=== PATIENT | male | born 2005 | race Caucasian/White ===

== ENCOUNTER 2023-04-27 16:21 | Observation (INO) | payer BC, MEDICAID, SELFPAY ==
[2023-04-27 16:25] VITALS: BP 153/85; PULSE 83; RESP 16; TEMP 36.5; O2SAT 98; BMI 37.6
--- NOTE | 2023-04-27 16:53 | CTR_ITS ---
PROCEDURE INFORMATION: Exam: CT Abdomen And Pelvis With Contrast Exam date and time: 04/27/2023 5:53 PM Age: 17 years old Clinical indication: Abdominal pain; Localized; Right lower quadrant (rlq); Additional info: Progressive rlq pain TECHNIQUE: Imaging protocol: Computed tomography of the abdomen and pelvis with contrast. Axial, coronal and sagittal reformatted images were created and reviewed. Radiation optimization: All CT scans at this facility use at least one of these dose optimization techniques: automated exposure control; mA and/or kV adjustment per patient size (includes targeted exams where dose is matched to clinical indication); or iterative reconstruction. Contrast material: OMNI 350; Contrast volume: 100 ml; Contrast route: INTRAVENOUS (IV); REPORTING DATA: Count of CT and Cardiac NM exams in prior 12 months: This patient has received 0 known CTs and 0 known cardiac nuclear medicine studies in the 12 months prior to the current study. COMPARISON: No relevant prior studies available. RADIATION DOSE METRICS: Total DLP (mGy-cm): 970 FINDINGS: Diaphragm: Small hiatal hernia. Liver: Unremarkable. Gallbladder and bile ducts: No radiodense gallstones. No biliary ductal dilatation. Pancreas: Unremarkable. Spleen: Unremarkable. Adrenal glands: Normal. No mass. Kidneys and ureters: No mass. No radiodense calculi. No hydronephrosis. Stomach and bowel: No bowel wall thickening. No obstruction. No pneumatosis. Appendix: Mildly dilated, hyperemic and thick-walled distal appendix with associated intraluminal appendicolith and subtle periappendiceal haziness. Intraperitoneal space: No free fluid. No organized fluid collection. No free air. Vasculature: Unremarkable. No aneurysm. Lymph nodes: Small mesenteric lymph nodes, nonspecific in appearance. No pathologically enlarged lymph nodes. Urinary bladder: Unremarkable as visualized. Reproductive: Unremarkable. Bones/joints: No acute osseous abnormality. Soft tissues: Tiny, fat containing umbilical hernia. CT/CT abdomen pelvis w con* [id number] IMPRESSION: 1. Findings concerning for acute distal appendicitis, as described above. 2. Additional findings, as above.
--- NOTE | 2023-04-27 16:54 | ED_ITS ---
HPI - Abdominal Pain General: Chief Complaint: Abdominal Pain Stated Complaint: abd pain Time Seen by Provider: 04/27/23 16:33 Source: patient and family Mode of arrival: ambulatory Limitations: no limitations History of Present Illness: This patient made his way to the emergency department after being referred from a clinic. History of having progressive abdominal pain that began earlier today shortly after arriving to work and has progressed throughout the day. He states that felt fine when he first got up. He states that he went to work and noted some soreness in his abdomen and thought he had to go to the bathroom which she did which did not relieve the pain in fact actually made the pain worse. Subsequently the pain continued to progress and worsen. It is predominantly located in the right side of his abdomen. He states it is made worse by bending over riding in the vehicle or moving about. He has had 2-3 bowel movements which have not changed his symptoms. He is also urinated as well. He denies any fevers or chills or recent illness. Denies any lifting injury. He states the pain does not radiate down to his scrotum or testicles. He has had a prior hernia surgery when he was an infant but otherwise no other surgery or significant past medical history. He is takes no medications. Quality: aching Radiation: RLQ Exacerbating factors: movement Relieving factors: nothing Associated Symptoms: Denies chills, diarrhea, dysuria, fever(s), nausea and vomiting Review of Systems Const: Denies: fever(s) or chills ENMT: Denies: throat pain, odynophagia, nasal discharge or nasal congestion Card: Denies: chest pain Resp: Denies: dyspnea, productive cough or non-productive cough GI: Denies: abdominal pain, nausea, vomiting or diarrhea : Denies: flank pain, difficulty urinating, dysuria or urinary frequency Musc: Denies: neck pain, back pain, extremity pain or extremity swelling Skin/Breast: Denies: rash Neuro: Denies: headache(s) or weakness in extremities Physical Exam Narrative: EXAM NARRATIVE: He is a husky looking teenager who appears to be comfortable and he is cooperative during the interview and answers questions appropriately. Const: COMMON NORMALS: patient oriented x3 and alert GENERAL APPEARANCE: cooperative and comfortable NUTRITIONAL APPEARANCE: overweight ORIENTATION/CONSCIOUSNESS: Yes awake HENMT: COMMON NORMALS: normocephalic, atraumatic, Normal nasal mucous membranes and turbinates present, moist oral mucous membranes and oropharynx normal HEAD & SCALP: normocephalic and atraumatic NOSE: Normal nasal mucous membranes and turbinates present Eye: COMMON NORMALS: Equal, round and reactive pupils present, EOMs intact bilaterally and conjunctivae normal CONJUNCTIVA: Yes conjunctivae normal PUPIL: Yes Equal, round and reactive pupils present Neck/C-Spine: COMMON NORMALS: full ROM and no lymphadenopathy Chest: COMMONS NORMALS: normal inspection of the chest Resp: COMMON NORMALS: normal respiratory effort, No retractions, No use of accessory muscles and clear to auscultation bilaterally AUSCULTATION: clear to auscultation bilaterally Cardio: COMMON NORMALS: regular rate, regular rhythm, No murmurs present (Cardio) and Peripheral pulses 2+ throughout RATE: regular rate RHYTHM: regular rhythm PERIPHERAL PULSES: Peripheral pulses 2+ throughout GI: COMMON NORMALS: Normal to inspection, nondistended, normoactive bowel sounds present and no masses PALPATION: Yes Tenderness to palpation present (GI), Yes Guarding due to palpation present (GI) and Yes Rebound tenderness present OTHER: As noted he has predominant tenderness in the paramedian location of his right side of his abdomen. Reproduction of guarding and symptoms with percussion movement of his abdomen as well as internal rotation of his right hip. GI image (male): 1. Area of maximal tenderness : COMMON NORMALS: Yes no CVA tenderness BLADDER/KIDNEY EXAM: Yes no CVA tenderness Back/Pelvis: COMMON NORMALS: no CVA tenderness, thoracic and lumbar spine normal to inspection, no thoracic nor lumbar tenderness and thoraco-lumbar ROM normal Extremity: COMMON NORMALS: normal to inspection, full ROM, capillary refill normal, no calf tenderness and no pedal edema Neuro: COMMON NORMALS: patient oriented x3, moves all extremities, no focal motor deficits and no sensory deficits noted SENSORIUM/ORIENTATION: Yes alert Psych: COMMON NORMALS: mental status grossly normal Skin: COMMON NORMALS: no rashes or lesions noted and no wounds GENERAL SKIN EXAM: no rashes or lesions noted Course Reevaluation(s): Reevaluation #1: Patient remained stable. Patient was informed of findings and the plan of care. All questions were answered. Time: 18:53 Consultations: Consultation #1: Discussed with Dr. Zhang general surgeon on-call who requested admission to him with initiation of IV be antibiotics and anticipation of an parking lot spotter a ppendectomy Time: 18:54 Vital Signs: Vital signs: Vital Signs Temperature 97.7 F 04/27/23 16:25 Pulse Rate 77 04/27/23 18:43 Respiratory Rate 16 04/27/23 18:43 Blood Pressure 114/62 04/27/23 18:43 Pulse Oximetry 97 04/27/23 18:43 Oxygen Delivery Me thod Room Air 04/27/23 18:43 MDM - Abdominal Pain Medical Decision Making Normally healthy teenager who presents to the emergency department with progressive abdominal pain predominantly located in the right abdomen since approximately 830 or so today. No associated symptoms of fevers chills vomiting diarrhea etc. Symptoms are worse with activity bending over and movement. His clinical examination suggested possible acute abdomen with guarding, psoas, obturator signs. We will obtain a screening laboratories and imaging to establish possible appendicitis or other potential etiologies of her his current presentation. Ancillary studies as well as imaging studies confirmed the suspicion he has acute appendicitis. General surgery was consulted and requested IV antibiotic coverage and admission to their service for planned parking lot spotter appendectomy. Family and patient were was informed of the plan of care. Differential Diagnosis Likely acute appendicitis Lab Data I reviewed the patient's lab results. 04/27/23 17:05 04/27/23 17:05 Labs/Radiology: Radiology Impressions Abdomen/Pelvis CT 04/27/23 16:53 IMPRESSION: 1. Findings concerning for acute distal appendicitis, as described above. 2. Additional findings, as above. Laboratory Results WBC 16.96 10^3/uL (4.5-13.0) H 04/27/23 17:05 RBC 4.32 10^6/uL (3.85-5.65) 04/27/23 17:05 Hgb 13.30 g/dL (13.2-15.6) 04/27/23 17:05 Hct 38.6 % (37-53) 04/27/23 17:05 MCV 89.4 fl (82-101) 04/27/23 17:05 MCH 30.8 pg (27-33) 04/27/23 17:05 MCHC 34.5 g/dL (30-55) 04/27/23 17:05 RDW 11.9 % (12.1-15.1) L 04/27/23 17:05 Plt Count 235 10^3/cmm (157-399) 04/27/23 17:05 MPV 10.8 fL (7.4-10.4) H 04/27/23 17:05 Neut % (Auto) 77.0 % 04/27/23 17:05 Lymph % (Auto) 16.3 % 04/27/23 17:05 [place] % (Auto) 5.8 % 04/27/23 17:05 Eos % (Auto) 0.2 % 04/27/23 17:05 Baso % (Auto) 0.3 % 04/27/23 17:05 Neut # (Auto) 13.06 10^3/uL (1.8-8.0) H 04/27/23 17:05 Lymph # (Auto) 2.8 10^3/uL (1.5-6.5) 04/27/23 17:05 [place] # (Auto) 1.0 10^3/uL (0.2-0.9) H 04/27/23 17:05 Eos # (Auto) 0.0 10^3/uL (0.0-0.8) 04/27/23 17:05 Baso # (Auto) 0.1 10^3/uL (0.0-0.1) 04/27/23 17:05 Nucleated RBC % (auto) 0 % 04/27/23 17:05 Nucleated RBCs # 0.0 /100WBC 04/27/23 17:05 Sodium 138 mmol/L (136-145) 04/27/23 17:05 Potassium 4.4 mmol/L (3.5-5.1) 04/27/23 17:05 Chloride 101 mmol/L (98-107) 04/27/23 17:05 Carbon Dioxide 25 mmol/L (22-29) 04/27/23 17:05 Anion Gap 16.4 (5-19) 04/27/23 17:05 BUN 12 mg/dL (6-20) 04/27/23 17:05 Creatinine 1.0 mg/dL (0.7-1.2) 04/27/23 17:05 GFR Calculation 96.3 mL/min (90-130) 04/27/23 17:05 Glucose 87 mg/dL (65-115) 04/27/23 17:05 Calculated Osmolality 285 mOsm/kg (285-295) 04/27/23 17:05 Calcium 9.7 mg/dL (8.5-10.5) 04/27/23 17:05 Total Bilirubin 0.7 mg/dL (0.15-1.2) 04/27/23 17:05 AST 18 U/L (0-40) 04/27/23 17:05 ALT 28 U/L (0-41) 04/27/23 17:05 Alkaline Phosphatase 54 U/L (40-130) 04/27/23 17:05 Total Protein 7.5 g/dL (6.6-8.7) 04/27/23 17:05 Albumin 4.7 g/dL (3.5-5.2) 04/27/23 17:05 Globulin 2.8 g/dL (1.3-4.6) 04/27/23 17:05 Urine Color Yellow (Yellow) 04/27/23 17:27 Urine Appearance Clear (CLEAR) 04/27/23 17:27 Urine pH 6 (5-7) 04/27/23 17:27 Ur Specific [place] 1.005 (1.005-1.030) 04/27/23 17:27 Urine Protein Neg (Negative) 04/27/23 17:27 Urine Glucose (UA) Norm (Normal) 04/27/23 17:27 Urine Ketones Negative (Negative) 04/27/23 17:27 Urine Blood Neg (Negative) 04/27/23 17:27 Urine Nitrate Negative (Negative) 04/27/23 17:27 Urine Bilirubin Neg (Negative) 04/27/23 17:27 Urine Urobilinogen Norm mg/dL (Negative) 04/27/23 17:27 Ur Leukocyte Esterase Negative (Negative) 04/27/23 17:27 All radiology interpretation(s) finalized by discharge Discharge Plan Discharge Patient Disposition: Placed in Observation Clinical Impression: Acute appendicitis Condition: Stable Coding Level of Care Code ED [employer] Sales Engineer for Amy Alanis
[2023-04-27 17:10] LABS: Basophils # 0.1 10^3/uL (0.0-0.1); Basophils % 0.3 %; Eosinophils % 0.2 %; Hematocrit 38.6 % (37-53); Lymphocytes # 2.8 10^3/uL (1.5-6.5); Lymphocytes % 16.3 %; Mean Corpuscular HGB Conc 34.5 g/dL (30-55); Mean Corpuscular Hemoglobin 30.8 pg (27-33); Mean Corpuscular Volume 89.4 fl (82-101); Mean Platelet Volume 10.8 fL (7.4-10.4); Monocytes % 5.8 %; Neutrophils # 13.06 10^3/uL (1.8-8.0); Nucleated Red Blood Cells % 0 %; Platelet Count 235 10^3/cmm (157-399); Red Blood Count 4.32 10^6/uL (3.85-5.65); Red Cell Distribution Width 11.9 % (12.1-15.1); White Blood Count 16.96 10^3/uL (4.5-13.0)
[2023-04-27 17:11] VITALS: BP 146/68; PULSE 78; RESP 16; O2SAT 98
[2023-04-27] MEDS: lactated ringers 1,000 ML 150 ML IV ×2 (17:31→23:53)
[2023-04-27 17:32] VITALS: RESP 16; O2SAT 98
[2023-04-27] MEDS: morphine 4 mg/mL SDV 1 mL IVP (17:32)
[2023-04-27 17:33] LABS: Add Urine Microscopic? NO; Charge for UA Resulting for Rev
[2023-04-27 17:36] LABS: Alanine Aminotransferase 28 U/L (0-41); Albumin Level 4.7 g/dL (3.5-5.2); Alkaline Phosphatase 54 U/L (40-130); Anion Gap 16.4 (5-19); Aspartate Amino Transferase 18 U/L (0-40); Blood Urea Nitrogen 12 mg/dL (6-20); Calcium 9.7 mg/dL (8.5-10.5); Carbon Dioxide 25 mmol/L (22-29); Chloride 101 mmol/L (98-107); Creatinine Clr Calc Pharmacy 149.0424; Globulin 2.8 g/dL (1.3-4.6); Glomerular Filtration Rate 96.3 mL/min (90-130); Glucose 87 mg/dL (65-115); Osmolality Calculated 285 mOsm/kg (285-295); Potassium 4.4 mmol/L (3.5-5.1); Sodium 138 mmol/L (136-145); Total Bilirubin 0.7 mg/dL (0.15-1.2); Total Protein 7.5 g/dL (6.6-8.7)
[2023-04-27 17:46] LABS: Bilirubin Urine Neg (Negative); Blood Urine Neg (Negative); Glucose Urine UA Norm (Normal); Ketones Urine Negative (Negative); Leukocyte Esterase Urine Negative (Negative); Nitrate Urine Negative (Negative); Protein Urine Neg (Negative); Specific Gravity, Urine 1.005 (1.005-1.030); Urine Appearance Clear (CLEAR); Urine Color Yellow (Yellow); Urobilinogen Urine Norm (Negative); pH Urine 6 (5-7)
[2023-04-27] MEDS: iohexol 350 mg/mL 500 mL Btl (per mL) IV (18:09)
[2023-04-27 18:43] VITALS: BP 114/62; PULSE 77; RESP 16; O2SAT 97
[2023-04-27] MEDS: piperacillin-tazobactam 3.375 GM in sodium chloride 0.9% (plus) 50 ML IV (19:14)
[2023-04-27 19:23] VITALS: BP 135/67; PULSE 73; RESP 16; O2SAT 100
[2023-04-27] MEDS: ketorolac 30 mg/mL INJ 15 MG IVP (20:30)
[2023-04-27 22:24] VITALS: BP 111/62; PULSE 69; RESP 18; TEMP 36.9; O2SAT 97
[2023-04-28] VITALS (13 sets, daily range): BP systolic 92–122; BP diastolic 46–67; PULSE 50–86; RESP 10–20; TEMP 36.1–37.1; O2SAT 93–100
[2023-04-28] MEDS: piperacillin-tazobactam 3.375 GM in sodium chloride 0.9% (plus) 50 ML IV (02:42)
[2023-04-28] MEDS: ketorolac 30 mg/mL INJ 15 MG IVP ×2 (02:42→11:16)
[2023-04-28 04:38] LABS: Basophils % 0.2 %; Eosinophils # 0.2 10^3/uL (0.0-0.8); Eosinophils % 1.3 %; Hematocrit 37.5 % (37-53); Lymphocytes # 2.9 10^3/uL (1.5-6.5); Lymphocytes % 25.5 %; Mean Corpuscular HGB Conc 33.1 g/dL (30-55); Mean Corpuscular Hemoglobin 30.5 pg (27-33); Mean Corpuscular Volume 92.4 fl (82-101); Mean Platelet Volume 11.7 fL (7.4-10.4); Monocytes # 1.1 10^3/uL (0.2-0.9); Monocytes % 9.4 %; Neutrophils # 7.19 10^3/uL (1.8-8.0); Neutrophils % 63.3 %; Nucleated Red Blood Cells % 0 %; Platelet Count 204 10^3/cmm (157-399); Red Blood Count 4.06 10^6/uL (3.85-5.65); Red Cell Distribution Width 12.1 % (12.1-15.1); White Blood Count 11.36 10^3/uL (4.5-13.0)
[2023-04-28] MEDS: lactated ringers 1,000 ML 150 ML IV (06:21)
--- NOTE | 2023-04-28 06:37 | P.HP_ITS ---
Providers/Chief Complaint Admitting Physician: Lázaro Engle MD Chief Complaint: abd pain History of Present Illness Rafael Daniels is a 17 year old male who presents to the emergency department complaining of abdominal pain that started in the paramedical region and then located to the right lower quadrant. The pain is 9/10 intensity, has been increasing intensity during the day. Pain started about 12 hours before presentation. No nausea or vomit, no changes in bowel movements. Review of Systems Narrative: 10 point review of systems done and negative otherwise noted in HPI Medications/Allergies Home Medications Medication Instructions Recorded Confirmed Last Taken Type No Known Home Medications 04/27/23 04/27/23 Unknown History Allergies Allergy/AdvReac Type Severity Reaction Status Date / Time No Known Allergies Allergy Verified 04/27/23 16:30 Vitals/I&O/Wt Last Vital Signs Temp 97.8 F 04/28/23 04:00 Pulse 67 04/28/23 04:00 Resp 16 04/28/23 04:00 BP 106/65 04/28/23 04:00 Pulse Ox 100 04/28/23 04:00 O2 Del Method Room Air 04/28/23 04:00 04/27/23 04/27/23 04/28/23 14:59 22:59 06:59 Intake Total 50 / 50 1989 / 2039 Output Total 0 / 0 750 / 750 Balance 50 / 50 1240 / 1290 Weight last 48 hrs Weight 255 lb Physical Exam Narrative: General : Patient is well developed , no acute distress, oriented x3 Head : Normal cephalic, a-traumatic. Nose : Mucous membranes are without erythema. Lungs : Equal chest rise bilaterally, no use of accessory muscles, trachea is midline. CV : Rate and rhythm are normal. Abdomen : Soft, tender on the right lower quadrant, McBurney positive, Rovsing positive Extremities : No edema. Upper extremities are normal bilaterally. Back : non-tender to palpation, no CVA tenderness. Data 04/28/23 04:22 04/27/23 17:05 A&P Assessment and plan (1) Acute appendicitis: After complete history, physical examination and review of all available clinical data the following is my assessment. patient presented with acute appendicitis as evidenced by clinical examination, laboratory work-up and imaging. After lengthy discussion regarding the risk and benefits of the operation including but not limited to infection, bleeding, damage to surrounding structures, need for additional procedures, hernia duration, abscess formation, need for open procedure. The patient has decided to proceed with laparoscopic appendectomy. Patient was admitted overnight for IV antibiotics and will taken to the OR this morning. Attestations Medical Necessity Statement*: Patient will require 24 hours of hospital stay in order to have laparoscopic appendectomy done. Coding Level of Care Code Acute Code for [facility] Diagnoses Acute appendicitis K35.80
--- NOTE | 2023-04-28 06:41 | P.ANESASSM_ITS ---
Pre-Anesthetic Assessment Height/Weight: Height 1.75 m Weight 115.666 kg Temp Pulse Resp BP Pulse Ox O2 Del Method 97.8 F 67 16 106/65 100 Room Air 04/28/23 04:00 04/28/23 04:00 04/28/23 04:00 04/28/23 04:00 04/28/23 04:00 04/28/23 04:00 Operation Date: 04/28/23 07:00 Proposed Procedures p Laparoscopic Appendectomy(Right) - Lázaro Engle MD Familial anesthetic complications: None Was Beta Micah taken within 24 hours: N/A Was Clonidine taken within 24 hours: N/A Last intake: Intake Last Liquid Date 04/27/23 Last Solid Date 04/27/23 Social No alcohol and No tobacco Exam alert, oriented x 3, clear to auscultation bilaterally and regular rate & rhythm Airway Mallampati: Class III Dentition: chipped Comments: Comments: preston. large neck Metabolic Morbid Obesity Anesthetic Plan ASA status: 2 Anesthesia: General Risk of > 500 ml blood loss (7ml/kg in children): No Medications/Allergies Home Medications Medication Instructions Recorded Confirmed Last Taken Type No Known Home Medications 04/27/23 04/27/23 Unknown History Allergies Allergy/AdvReac Type Severity Reaction Status Date / Time No Known Allergies Allergy Verified 04/27/23 16:30 Current Medications Generic Name Dose Route Start Last Admin Trade Name Freq PRN Reason Stop Dose Admin Lactated Ringer's 1,000 mls @ 150 mls/hr 04/27/23 17:00 04/28/23 06:27 Lactated Ringers IV 0 mls/hr .[id number] STEVE Infusion Piperacillin Sod/Tazobactam 50 mls @ 12.5 mls/hr 04/27/23 19:00 04/28/23 06 :27 Sod 3.375 gm/ Sodium Chloride IV Infused Q8H STEVE Infusion Protocol Ketorolac Tromethamine 15 mg 04/27/23 20:45 04/28/23 02:42 Ketorolac 30 Mg/Ml Inj IVP 05/02/23 20:44 15 mg Q6H STEVE Administration Data Anesthesia 04/28/23 04:22 04/27/23 17:05 Short CBC 04/27/23 04/28/23 Range/Units 17:05 04:22 WBC 16.96 H 11.36 (4.5-13.0) 10^3/uL Hgb 13.30 12.40 L (13.2-15.6) g/dL Hct 38.6 37.5 (37-53) % MCV 89.4 92.4 (82-101) fl Plt Count 235 204 (157-399) 10^3/cmm Neut % (Auto) 77.0 63.3 % Neut # (Auto) 13.06 H 7.19 (1.8-8.0) 10^3/uL BMP 04/27/23 17:05 Sodium 138 Potassium 4.4 Chloride 101 Carbon Dioxide 25 BUN 12 Creatinine 1.0 Glucose 87 Calcium 9.7 Liver Function 04/27/23 Range/Units 17:05 Total Bilirubin 0.7 (0.15-1.2) mg/dL AST 18 (0-40) U/L ALT 28 (0-41) U/L Alkaline Phosphatase 54 (40-130) U/L Albumin 4.7 (3.5-5.2) g/dL Urine 04/27/23 Range/Units 17:27 Urine Color Yellow (Yellow) Urine Appearance Clear (CLEAR) Urine pH 6 (5-7) Ur Specific [place] 1.005 (1.005-1.030) Urine Protein Neg (Negative) Urine Glucose (UA) Norm (Normal) Urine Ketones Negative (Negative) Urine Nitrate Negative (Negative) Urine Bilirubin Neg (Negative) Ur Leukocyte Esterase Negative (Negative) Cardiac Studies: No Data to Display
[2023-04-28] MEDS: sodium chloride 0.9% 1,000 ML 30 ML IV (06:45)
[2023-04-28] MEDS: BUPivacaine 0.25% INJ 10 mL INJECTION (07:39)
[2023-04-28] MEDS: lidocaine-epi 1% 20 mL INJ INJECTION (07:39)
--- NOTE | 2023-04-28 08:07 | PM.OP ---
Operative Report Date of procedure: April 28, 2023 Pre-op diagnosis: Acute appendicitis Post-op diagnosis: Acute appendicitis Post-op findings: Inflamed appendix, suppurative changes at the tip Procedure done: Laparoscopic appendectomy Specimens removed/disposition: Appendix Surgeon: Lázaro Engle MD Estimated blood loss: 5 Complications: none Brief History: Is a 17-year-old male who presented with acute appendicitis. After complete discussion the risk and benefits of the operation as documented in my H&P patient has decided to undergo laparoscopic appendectomy. Procedure: Patient was brought into the OR, placed in the supine position, compression stockings were placed. General esthesia was given without complications. The abdomen was prepped and draped in the usual sterile fashion. Timeout was conducted. I accessed the abdomen via an infraumbilical incision with an open technique, 12 mm Trocar Was Placed in the Wound and Secured to the Fascia with 0 Vicryl. Initial Pneumoperitoneum Was Achieved, No Evidence of Visceral Injuries Was Noted upon Entry. Additional 5 Mm Trocars Were Placed in the Suprapubic and Left Lower Quadrant Position. The Appendix Was Identified, Appendix Was Elevated and the Mesoappendix Was Then Taken down with LigaSure to the Base of the Appendix. Once the Base Was Completely Dissected I Transected the Appendix at the Base Using a 45 Mm Blue Load Endo ALEX Stapler. The Staple Line Appeared Hemostatic and Viable. The Specimen Was Retrieved. The Umbilical Trocar Site an Endo Catch Bag. The Umbilical Trocar Was Removed, the Fascia of the Umbilical Trocar Site Was Then Closed with a #0 Vicryl Using a Jt-Linh under Direct Visualization. Pneumoperitoneum Was Evacuated and Remainder Trocars Were Removed. Local Anesthesia Was Infiltrated in the Wounds. The Skin Was Closed with #4-0 Monocryl and Dermabond was applied. At the end of the procedure all counts were correct. The patient tolerated well the procedure, was extubated and transferred to the PACU in stable condition.
--- NOTE | 2023-04-28 08:13 | PM.DCS ---
Discharge Providers Date of Admission: 04/27/23 19:44 Date of Discharge: April 28, 2023 Attending Provider at Admission: Lázaro Engle MD Attending Provider at Discharge: Lázaro Engle MD Diagnoses at Discharge Discharge Diagnosis (1) Acute appendicitis: Details from hospital stay: 17-year-old male who presented to the ER complaining of abdominal pain of about 12 hours of progress, pain was located in the right lower quadrant. White count was elevated to 16,000, CT scan of the abdomen showed evidence of acute appendicitis. Patient was admitted to the hospital, placed on antibiotics and underwent a laparoscopic appendectomy without complications. Patient stable for discharge we will follow-up in the clinic as outpatient. Status: Acute Reason for Visit Reason for Visit: abd pain Physical Exam Narrative: General : Patient is well developed , no acute distress, oriented x3 Head : Normal cephalic, a-traumatic. Nose : Mucous membranes are without erythema. Lungs : Equal chest rise bilaterally, no use of accessory muscles, trachea is midline. CV : Rate and rhythm are normal. Abdomen : Soft, appropriately tender to palpation, surgical incisions covered with Dermabond Extremities : No edema. Upper extremities are normal bilaterally. Back : non-tender to palpation, no CVA tenderness. Discharge Data Studies Completed and Pending Completed Studies During Hospitalization Category Date Time Status CT abdomen pelvis w con* [id number] Stat Cat Scan 04/27/23 16:53 Completed Pending at discharge Category Date Time Status ES surgery / GI images Routine Exams 04/28/23 06:42 Ordered Pathology: Surgical [PTH] Routine Pth 04/28/23 07:59 Ordered Radiology Impressions Abdomen/Pelvis CT 04/27/23 16:53 IMPRESSION: 1. Findings concerning for acute distal appendicitis, as described above. 2. Additional findings, as above. ADDENDUM: 04/27/23 1847 ADDENDUM: THIS REPORT CONTAINS FINDINGS THAT MAY BE CRITICAL TO PATIENT CARE. The findings were verbally communicated via telephone conference with CHON SHAW at 6:46 PM CDT on 04/27/2023. The findings were acknowledged and understood. Laboratory Results WBC 11.36 10^3/uL (4.5-13.0) 04/28/23 04:22 RBC 4.06 10^6/uL (3.85-5.65) 04/28/23 04:22 Hgb 12.40 g/dL (13.2-15.6) L 04/28/23 04:22 Hct 37.5 % (37-53) 04/28/23 04:22 MCV 92.4 fl (82-101) 04/28/23 04:22 MCH 30.5 pg (27-33) 04/28/23 04:22 MCHC 33.1 g/dL (30-55) 04/28/23 04:22 RDW 12.1 % (12.1-15.1) 04/28/23 04:22 Plt Count 204 10^3/cmm (157-399) 04/28/23 04:22 MPV 11.7 fL (7.4-10.4) H 04/28/23 04:22 Neut % (Auto) 63.3 % 04/28/23 04:22 Lymph % (Auto) 25.5 % 04/28/23 04:22 [place] % (Auto) 9.4 % 04/28/23 04:22 Eos % (Auto) 1.3 % 04/28/23 04:22 Baso % (Auto) 0.2 % 04/28/23 04:22 Neut # (Auto) 7.19 10^3/uL (1.8-8.0) 04/28/23 04:22 Lymph # (Auto) 2.9 10^3/uL (1.5-6.5) 04/28/23 04:22 [place] # (Auto) 1.1 10^3/uL (0.2-0.9) H 04/28/23 04:22 Eos # (Auto) 0.2 10^3/uL (0.0-0.8) 04/28/23 04:22 Baso # (Auto) 0.0 10^3/uL (0.0-0.1) 04/28/23 04:22 Nucleated RBC % (auto) 0 % 04/28/23 04:22 Nucleated RBCs # 0.0 /100WBC 04/28/23 04:22 Sodium 138 mmol/L (136-145) 04/27/23 17:05 Potassium 4.4 mmol/L (3.5-5.1) 04/27/23 17:05 Chloride 101 mmol/L (98-107) 04/27/23 17:05 Carbon Dioxide 25 mmol/L (22-29) 04/27/23 17:05 Anion Gap 16.4 (5-19) 04/27/23 17:05 BUN 12 mg/dL (6-20) 04/27/23 17:05 Creatinine 1.0 mg/dL (0.7-1.2) 04/27/23 17:05 GFR Calculation 96.3 mL/min (90-130) 04/27/23 17:05 Glucose 87 mg/dL (65-115) 04/27/23 17:05 Calculated Osmolality 285 mOsm/kg (285-295) 04/27/23 17:05 Calcium 9.7 mg/dL (8.5-10.5) 04/27/23 17:05 Total Bilirubin 0.7 mg/dL (0.15-1.2) 04/27/23 17:05 AST 18 U/L (0-40) 04/27/23 17:05 ALT 28 U/L (0-41) 04/27/23 17:05 Alkaline Phosphatase 54 U/L (40-130) 04/27/23 17:05 Total Protein 7.5 g/dL (6.6-8.7) 04/27/23 17:05 Albumin 4.7 g/dL (3.5-5.2) 04/27/23 17:05 Globulin 2.8 g/dL (1.3-4.6) 04/27/23 17:05 Urine Color Yellow (Yellow) 04/27/23:27 Urine Appearance Clear (CLEAR) 04/27/23: Urine pH 6 (5-7) 04/27/23: Ur Specific [place] 1.005 (1.005-1.030) 04/27/23: Urine Protein Neg (Negative) 04/27/23:27 Urine Glucose (UA) Norm (Normal) 04/27/23: Urine Ketones Negative (Negative) 04/27/23: Urine Blood Neg (Negative) 04/27/23: Urine Nitrate Negative (Negative) 04/27/23: Urine Bilirubin Neg (Negative) 04/27/23: Urine Urobilinogen Norm mg/dL (Negative) 04/27/23: Ur Leukocyte Esterase Negative (Negative) 04/27/23:27 Vitals Last Vital Signs Temp 98.8 F 04/28/23 06:45 Pulse 86 04/28/23 06:45 Resp 18 04/28/23 06:45 BP 120/46 04/28/23 06:45 Pulse Ox 100 04/28/23 06:45 O2 Del Method Room Air 04/28/23 06:45 Discharge Plan Discharge Patient Disposition: Home Condition: Stable Prescriptions: New oxycodone 5 mg tablet 5 mg PO Q8H PRN (Reason: pain) Qty: 10 0RF docusate sodium 100 mg capsule 100 mg PO BID Qty: 14 0RF meloxicam 7.5 mg tablet 7.5 mg PO DAILY Qty: 7 0RF Discharge Orders: Discharge Order (Routine); Ordered 04/28/23 Ordered By: Lázaro Engle Referrals: Lázaro Engle MD [Physician] - 05/25/23 Discharge Diet: Usual diet Discharge Activity: Limit activity as instructed Patient Instructions: Opioid Safety, Post Anesthesia Care Activity Restrictions/Additional Instructions: No heavy lifting, no more than 10 pounds over the next 6 weeks. . You can shower starting tomorrow, let soap and water run over your wounds and pat dry. Please return to the ED if you have severe abdominal pain, fever, chills nausea and vomit. Discharge Attestations Time Spent in Discharge Care*: less than 30 min Quality Metrics Clinical Quality Measures [ No reported AMI, CVA or VTE this stay] Coding Level of Care Code Acute Code for g Fwd Diagnoses Acute appendicitis K35.80
--- NOTE | 2023-04-28 08:50 | ANE.PACU2 ---
Inpatient post-anesthesia follow up: Airway intact: Yes Vital signs: Temperature 97.0 F Pulse Rate 66 Respiratory Rate 18 Blood Pressure 119/59 Pulse Oximetry 94 Oxygen Delivery Me thod Room Air Oxygen Flow Rate 6 Fraction of Inspir ed Oxygen Hydration adequate: Yes Nausea and vomiting: No Pain level: 1 Mental status: Baseline
--- NOTE | 2023-04-28 09:20 | PC.CHAP ---
Pastoral Care Encounter/Spiritual Assessment Type of Contact [] Declined cylinder tester visit [] Patient/Family/Request visit [] Outpatient visit [] Follow-up visit [] Physician referral [] Code/Alert [x] Routine visit [] Staff referral [] Actively dying [] Patient sleeping [x] Family support [] [] Out of room [] Palliative care [] [] Receiving care in room [] Pre-surgical visit [] Trauma [] Long length of stay [] ICU visit [] Other: Relational/Emotional Strength [x] Patient feels connected with others/family/visitors/staff [] Distress [] Loneliness/isolation [] Abandonment Spirituality of Patient [x] Person of Nellie [] Attends Yazidism of their Nellie [x] Believes in Prayer [] Reads Bible or Confucianism materials [] There are Spiritual issues to be addressed Computer Security Manager Interventions [x] Prayer [x] Active listening [] Non-anxious presence [x] Spiritual/emotional support [] Crisis/trauma care [] Spiritual counseling [] Bereavement support [] Provided bereavement packet [] Provided Bible/devotional materials [] Provided toy/stuffed animal, coloring book to patient or family member [] Provided Communion [] Anointing/[place] [] Salvation [x] Completed spiritual assessment [] Other: Impact on Illness or Injury [] Angry [] Fearful [] Anxious [] Often cries [] Exhaustion [] Unable to work [] Unable to attend latter-day [] Unable to walk/stand [] Unable to read [] Unable to drive [] Unable to eat/drink [] Unable to sleep [] Unable to be with family [] Patient intubated [] Other: Summary Time spent with patient 5 min
--- NOTE | 2023-04-28 11:49 | PC.NURSE ---
Discharge Note Patient discharged to home via private vehicle accompanied by mother and girlfriend. Discharge instructions reviewed with patient and/or [facility] representatives. Mobile pharmacy medications and/or prescriptions provided. Belongings/home medications returned.
== END 2023-04-28 11:50 | disposition home or self-care (01) ==
LOC: ER 18:54 → MEDSURG 19:45
PROVIDERS: Admitting Provider Surgery; Emergency Provider Emergency Medicine; Visit Provider Surgery
PROC: 0DTJ4ZZ Resection of Appendix, Percutaneous Endoscopic Approach (ICD-10-PCS; CPT 44970; principal; 2023-04-28 07:00)
DX: K35.80 Unspecified acute appendicitis (principal); E66.01 Morbid (severe) obesity due to excess calories; Z68.37 Body mass index [BMI] 37.0-37.9, adult
CPT/HCPCS: 44970; 36415; 74177; 80053; 81003; 85025; 88304; 96365; 96375; 99285; G0378; J0131; J0461; J1100; J1170; J1200; J1885; J2250; J2270; J2405; J2543; J2704; J2710; J3010; J3490; J7030; J7120; Q9967